=== PATIENT | male | born 1990 | race Caucasian/White ===

== ENCOUNTER 2025-02-20 12:33 | Outpatient (CLI) | payer OTHER | END 2025-02-20 12:41 | disposition home or self-care (01) | LOC: RAD 12:33 | DX: M25.561 Pain in right knee (principal); M25.562 Pain in left knee ==

== ENCOUNTER 2025-03-01 07:43 | Outpatient (CLI) | payer OTHER | END 2025-03-01 07:53 | disposition home or self-care (01) | LOC: MRI 07:43 | PROVIDERS: ATTEND Emergency Medicine | DX: M25.562 Pain in left knee (principal) | CPT/HCPCS: 73721 ==